=== PATIENT | male | born 1980 | race Asian ===

== ENCOUNTER 2021-03-19 18:33 | Emergency (ER) | payer MEDICAID ==
[~2021-03-19] VITALS: Ht 182.9 cm; Wt 104.3 kg
[2021-03-19 18:44] VITALS: BP_SYST 150
[2021-03-19] MEDS ORDERED: LORazepam 2 MG/ML VIAL IM ONE (19:00)
[2021-03-19] MEDS ORDERED: NAPR-1172 PO (19:35)
[2021-03-19 19:51] VITALS: BP_SYST 140
== END 2021-03-19 19:51 | disposition home or self-care (01) ==
LOC: SED 18:33
DX: M94.0 Chondrocostal junction syndrome [Tietze] (principal); F41.9 Anxiety disorder, unspecified; Z79.899 Other long term (current) drug therapy
CPT/HCPCS: 71045; 93005; 99283

== ENCOUNTER 2021-11-14 05:05 | Emergency (ER) | payer MEDICAID ==
[~2021-11-14] VITALS: Ht 182.9 cm; Wt 104.3 kg
[~2021-11-14 05:05] MED LIST: NAPR-1172 PO
[2021-11-14 05:10] VITALS: BP_SYST 154
[2021-11-14] MEDS ORDERED: KETOROLAC TROMETHAMINE 60 MG/2 ML VIAL IM ONE (06:15)
[2021-11-14] MEDS ORDERED: TRAM50TA PO (06:18)
[2021-11-14] MEDS ORDERED: NAPR-688 PO (06:18)
[2021-11-14 06:44] VITALS: BP_SYST 154
== END 2021-11-14 06:44 | disposition home or self-care (01) ==
LOC: SED 05:05
DX: M76.61 Achilles tendinitis, right leg (principal)
CPT/HCPCS: 96372; 99283; J1885

== ENCOUNTER 2021-12-19 04:25 | Emergency (ER) | payer MEDICAID ==
[~2021-12-19] VITALS: Ht 182.9 cm; Wt 108.9 kg
[~2021-12-19 04:25] MED LIST changes: +NAPR-688 PO; +TRAM50TA PO
[2021-12-19 05:45] VITALS: BP_SYST 129
--- NOTE | 2021-12-19 05:45 | NUR ---
Patient ambulatory to bed 7 for evaluation and treatment
[2021-12-19] MEDS ORDERED: COLCHICINE 0.6 MG TABLET PO ONE (06:00)
[2021-12-19] MEDS ORDERED: IBUPROFEN 600 MG TABLET PO ONE (06:00)
[2021-12-19 06:13] LABS: BASOPHILS % (AUTO) 0.5 % (0.0-2.0); EOSINOPHILS # (AUTO) 0.1 K/uL (0.0-0.4); EOSINOPHILS % (AUTO) 1.2 % (0.0-4.0); HEMATOCRIT 42.2 % (36-54); HEMOGLOBIN 13.6 g/dL (14.0-18.0); LYMPHOCYTES # (AUTO) 1.6 K/uL (1.0-5.5); LYMPHOCYTES % (AUTO) 20.3 % (20.5-51.5); MEAN CORPUSCULAR HEMOGLOBIN 21 pg (27-31); MEAN CORPUSCULAR HGB CONC 32 % (32-36); MEAN CORPUSCULAR VOLUME 67 fL (79.0-98.0); MONOCYTES # (AUTO) 0.9 K/uL (0.0-1.0); MONOCYTES % (AUTO) 11.7 % (1.7-9.3); NEUTROPHILS # (AUTO) 5.4 K/uL (1.8-7.7); NEUTROPHILS % (AUTO) 66.3 % (40.0-70.0); PLATELET COUNT (AUTO) 233 K/uL (130-430); RED BLOOD CELL COUNT(AUTO) 6.34 MIL/uL (4.2-6.2); RED CELL DISTRIBUTION WIDTH 15.4 % (9.0-15.0); WHITE BLOOD COUNT (AUTO) 8.1 K/uL (4.8-10.8)
[2021-12-19 06:29] LABS: CALCIUM 9.1 mg/dL (8.4-11.0); CREATININE 0.95 mg/dL (0.55-1.30); POTASSIUM 4.2 mmol/L (3.5-5.1)
[2021-12-19 06:33] LABS: ALBUMIN 4.4 g/dL (3.4-4.8); TOTAL BILIRUBIN 0.4 mg/dL (0.0-1.0); URIC ACID 7.8 mg/dL (2.4-7.0)
--- NOTE | 2021-12-19 06:39 | NUR ---
ER at bedside examining patient.
[2021-12-19] MEDS ORDERED: ALLO100T PO (06:56)
[2021-12-19] MEDS ORDERED: IBUP-1971 PO (06:56)
[2021-12-19] MEDS ORDERED: HYDR-3917 PO (06:56)
--- NOTE | 2021-12-19 07:15 | NUR ---
Made first contact with patient. Pt informed he is awaiting medication for L great toe pain then will be discharged. Alert and oriented upon face to face assessment. Will continue to monitor closely.
--- NOTE | 2021-12-19 07:35 | NUR ---
Patient given written and verbal discharge instructions and verbalizes understanding. ER MD discussed with patient the results and treatment provided. Patient in stable condition. ID arm band removed. Rx of Allopurinaol, Motrin and Powers given. Patient educated on pain management and to follow up with PMD. Opportunity for questions provided and answered. Medication side effect fact sheet provided.
== END 2021-12-19 07:35 | disposition home or self-care (01) ==
LOC: SED 04:25
DX: M10.9 Gout, unspecified (principal); F41.9 Anxiety disorder, unspecified; Z79.899 Other long term (current) drug therapy
CPT/HCPCS: 36415; 80053; 84550; 85025; 99283